=== PATIENT | female | born 1975 | race Caucasian/White ===

== ENCOUNTER 2020-09-11 06:15 | Day surgery (SDC) | payer OTHER ==
[~2020-09-11] VITALS: Ht 172.7 cm; Wt 122.7 kg
[~2020-09-11 06:15] MED LIST: CYMBALTA60 MG PO; ROBAXIN100 MG/1 M PO; VENTOLIN HFA18 GM INH
[2020-09-11] MEDS ORDERED: DICLOFENAC SODI75 MG PO (09:30)
[2020-09-11] MEDS ORDERED: TRAMADOL HCL50 MG PO (09:30)
--- NOTE | 2020-09-11 09:35 | NUR ---
09/11/20 0935 Paris Gonzalez 0928- PT ARRIVES TO PACU NONAROUSABLE TO NOXIOUS STIMULI WITH AN OPA IN PLACE. PT STILL OBSTRUCTING AND NEEDING A JAW THRUST TO MAINTAIN PATENT AIRWAY. RESP EVEN AND UNLABORED. OXYGEN SAT MID TO HIGH 90'S ON 6L VIA MASK.
--- NOTE | 2020-09-11 10:28 | NUR ---
1005: PT RETURNS TO UNIT FROM PACU VIA STRETCHER. AWAKE AND ALERT, CONVERSES WITH THIS RN APPROPRIATLEY. VSS, RESP EVEN AND UNLABORED. COMFORTABLE WITH NO NAUSEA. DRESSING C/D/I, CMS WNL. ICE APPLIED TO OPERATIVE LIMB. ICE WATER AND CRACKERS PROVIDED. NO NEEDS VOICED AT THIS TIME, CALL LIGHT WITHIN REACH
--- NOTE | 2020-09-11 11:07 | NUR ---
1100: PT WITH REQUEST TO USE BR. AMBULATES WITH STANDBY ASSIST FROM DIONE SEWELL. FRANDY WELL, DENIES DIZZINESS AND SOB. SUCCESSFUL UNMEASURABLE VOID. BACK TO ROOM AND DRESSES SELF INDEPENDENTLY 1105: VSS, RESP EVEN AND UNLABORED. PT COMFORTABLE WITHOUT NAUSEA AT THIS TIME. FRANDY PO INTAKE. DRESSING C/D/I, CMS WNL. ATTENTIVE AT THE BEDSIDE
--- NOTE | 2020-09-11 11:31 | NUR ---
1115: SL D/C'D WITH CATH TIP INTACT AND PRESSURE APPLIED TO SITE. WNL. D/C INSTRUCTIONS PROVIDED AND DISCUSSED PER HOSPITAL POLICY. PT VOICES UNDERSTANDING AND DENIES QUESTIONS AND CONCERNS AT THIS TIME. WHEELED OFF OF UNIT IN W/C BY THIS RN. TRANSFERS INTO VEHICLE INDEPENDENTLY. FRANDY WELL. NO S/S OF DISTRESS AT THIS TIME
--- NOTE | 2020-09-14 07:01 | OR ---
[facility] [address] [place] [address] Signed DATE OF OPERATION: 09/11/2020 SURGEON: Matteo Vargas MD PREOPERATIVE DIAGNOSIS: Medial meniscus tear, left knee. POSTOPERATIVE DIAGNOSIS: Medial meniscus tear, left knee. PROCEDURE PERFORMED: Left knee arthroscopy with partial medial meniscectomy. BIN OPERATOR: None. ANESTHESIA: General. BLOOD LOSS: Minimal. TOURNIQUET TIME: Zero. BRIEF HISTORY: Haley is a 45-year-old female with a painful knee that was giving out. Risks and benefits of operative treatment were discussed with her and she elected to proceed. DESCRIPTION OF PROCEDURE: Once consent was obtained, she was taken to the operating room, after adequate anesthesia, she was placed on operating room table, all downside pressure points were well padded. The right leg was flexed, abducted, and externally rotated on a well-padded leg sultana, the left was placed in well-padded leg sultana with no tourniquet. The portal sites were then injected with 0.25% Marcaine with epinephrine under an alcohol prep. The leg was then prepped and draped in the standard sterile fashion. The standard inferolateral and superolateral portals were established and the scope was introduced in the knee. ARTHROSCOPIC FINDINGS: Electronically Signed By: MATTEO VARGAS MD 09/14/20 0701 PATIENT NAME: HALEY MANN OPERATIVE REPORT DATE OF : 71 REPORT #: [id number] PHYSICIAN: MATTEO VARGAS MD PCP: DAMIAN AVILA PA-C REPORT IS CONFIDENTIAL AND NOT TO BE RELEASED WITHOUT AUTHORIZATION [facility] [address] [place] [address] Signed Moderate synovitis was noted throughout the knee. The patella was noted to be in good position and tracked well. Medial and lateral gutters were clear. There were significant osteophytes in a medial gutter. The ACL and PCL were intact. The lateral compartment was intact. 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 There was a radial tear of the posterior horn. Her knee was extremely tight. It was very difficult to reach the posterior aspect of her knee. I had difficulty introducing the instruments through the medial compartment. We were able to move the scope to the medial side, introduced the instruments primarily from the lateral side through the notch and debrided the tear back with curved and straight biters. This was then smoothed using shaver and all debris was evacuated. The chondral flaps on the femoral condyle were debrided as well. Once this was accomplished, the scope was withdrawn and portals were closed with 3-0 nylon. The knee was injected with 60 mg Toradol at the end of the case. She tolerated the procedure well. All sponge, needle, and instrument counts were correct. Matteo Vargas MD BA/ENIOL /[id number] Copies: ~ Electronically Signed By: MATTEO VARGAS MD 09/14/20 07 PATIENT NAME: HALEY AMNN OPERATIVE REPORT DATE OF : 71 REPORT #: [id number] PHYSICIAN: MATTEO VARGAS MD PCP: DAMIAN AVILA PA-C REPORT IS CONFIDENTIAL AND NOT TO BE RELEASED WITHOUT AUTHORIZATION
== END 2020-09-11 11:15 | disposition home or self-care (01) ==
LOC: DS 06:15
PROVIDERS: ATTEND Specialist
PROC: 0SBD4ZZ Excision of Left Knee Joint, Percutaneous Endoscopic Approach (ICD-10-PCS; principal; 2020-09-11 09:00)
DX: S83.242A Other tear of medial meniscus, current injury, left knee, initial encounter (principal); J45.909 Unspecified asthma, uncomplicated; F41.9 Anxiety disorder, unspecified; F32.9 Major depressive disorder, single episode, unspecified; Z88.5 Allergy status to narcotic agent; Z88.2 Allergy status to sulfonamides; Z88.8 Allergy status to other drugs, medicaments and biological substances; Z87.891 Personal history of nicotine dependence; Z91.041 Radiographic dye allergy status; X58.XXXA Exposure to other specified factors, initial encounter
CPT/HCPCS: 01400; J0690; J1100; J1885; J2001; J2250; J2405; J2704; J3010; J7121

== ENCOUNTER 2022-12-28 06:55 | Day surgery (SDC) | payer OTHER ==
[~2022-12-28] VITALS: Ht 172.7 cm; Wt 111.0 kg
[~2022-12-28 06:55] MED LIST changes: +CHLORTHALIDONE50 MG PO; +DICLOFENAC SODI75 MG PO; +K-TAB ER20 MEQ PO; +NALTREX4.5 MG PO; +PRISTIQ ER100 MG PO; +SINGULAIR10 MG PO; +TRAMADOL HCL50 MG PO; +VITAMIN D250 MC1 PO; +VYVANSE30 MG PO
[2022-12-28 07:13] VITALS: BP 141/70
--- NOTE | 2022-12-28 07:50 | NUR ---
PATIENT IN GOOD SPIRITS. CONSENTED TO PRAYER. PRAYED FOR SUCCESSFUL PROCEDURE AND MCCLAIN RECOVERY.
--- NOTE | 2022-12-28 09:18 | NUR ---
12/28/22 0918 Khalida Vargas 0905 PT TO PACU AWAKE AND ALERT DENIES PAIN AND NAUSEA. HAVING CONVERSATIONS WITH STAFF.
[2022-12-28 09:36] VITALS: BP 150/83
--- NOTE | 2022-12-28 11:15 | OR ---
[facility] [address], [place] [address] Signed DATE OF OPERATION: 12/28/2022 SURGEON: Kaela Rai MD PREOPERATIVE DIAGNOSES: 1. Mother with history of adenomatous colonic polyps, age 67. 2. Sister with ulcerative colitis diagnosed in her mid 20s. POSTOPERATIVE DIAGNOSIS: Minimal internal hemorrhoids. PROCEDURE: Colonoscopy with hot biopsy. ESTIMATED BLOOD LOSS: None. INDICATIONS: Mary Kay is a obese female, asked to see me for her initial colonoscopy. I have helped her and her mother with colonoscopies. Consequently, Mary Kay is familiar with this process. We know her mother had tubular adenomatous polyps removed at age 67. Her sister was diagnosed with ulcerative colitis in her mid 20s. She tells me her sister has quite a bit of trouble with the ulcerative colitis. She has been encouraged to see a golf club head inspector and adjuster. Mary Kay tells me she has no lower GI complaints; however, she does not feel her digestion is always the best. In the office, I gave her a pamphlet on colonoscopy. She understands the nature of the test. There is risk including, but not limited to gas bloating, crampy abdominal pain, bleeding, perforation requiring surgery, and missed diagnosis. We also reviewed the written instructions for bowel prep line by line. We also reviewed the need for monitored anesthesia care given her daily need of Vyvanse, naltrexone, and alprazolam, and her very full round face with a heavy chest and abdomen. She had expressed understanding and wished to proceed. DESCRIPTION OF PROCEDURE: Mary Kay was taken into our endoscopy suite and placed in the left lateral decubitus position. She was given monitored anesthesia care with propofol infusion per our nurse aged or disabled carer. A digital rectal exam was performed, this was unremarkable. There were no external hemorrhoids. She has good sphincter tone. There were no masses. The adult colonoscope was introduced and advanced all around into the cecum under direct visualization of camera without difficulty. Her prep was quite excellent. We could easily see the appendiceal orifice and the ileocecal valve. We had taken several Electronically Signed By: KAELA RAI MD 12/28/22 1115 PATIENT NAME: MARY KAY MANN OPERATIVE REPORT DATE OF : 71 REPORT #: [id number] PHYSICIAN: KAELA RAI MD PCP: JACQUELIN AVILA PA-C REPORT IS CONFIDENTIAL AND NOT TO BE RELEASED WITHOUT AUTHORIZATION [facility] [address], [place] [address] Signed pictures throughout for photodocumentation. The scope had been slowly withdrawn. There was no diverticulosis. There were no polyps. Once in the rectum, the scope was retroflexed and she really has minimal internal hemorrhoid columns. After this, the gas was suctioned out, colonoscope removed. Mary Kay tolerated her procedure quite well. RECOMMENDATIONS: Mary Kay can follow up in 5 years for repeat colonoscopy given her mother's history of colonic polyps. Kaela Rai MD ALB/MODL /[id number] cc: MD Jacquelin Rojas PA-C Patient Chart Copies: KAELA RAI MD, CHLOE K PA-C ~ Electronically Signed By: KAELA RAI MD 12/28/22 1115 PATIENT NAME: MARY KAY MANN OPERATIVE REPORT DATE OF : 71 REPORT #: [id number] PHYSICIAN: KAELA RAI MD PCP: JACQUELIN AVILA PA-C REPORT IS CONFIDENTIAL AND NOT TO BE RELEASED WITHOUT AUTHORIZATION
--- NOTE | 2022-12-28 22:22 | EKG ---
[facility] [address] [place] [address] Signed Normal sinus rhythm Normal ECG No previous ECGs available Confirmed by Cresencio Billings MD () on 12/28/2022 10:22:28 PM Electronically Signed By: CRESENCIO BILLINGS MD 12/28/222221 PATIENT NAME: HALEY MANN Electrocardiogram DATE OF : 71 PHYSICIAN: CRESENCIO BILLINGS MD REPORT #: [id number] REPORT IS CONFIDENTIAL AND NOT TO BE RELEASED WITHOUT AUTHORIZATION
== END 2022-12-28 09:35 | disposition home or self-care (01) ==
LOC: DS 06:55 → OPS 06:55 → DS 08:45 → OPS 08:45
PROVIDERS: ATTEND Colon & Rectal Surgery
PROC: 0DJD8ZZ Inspection of Lower Intestinal Tract, Via Natural or Artificial Opening Endoscopic (ICD-10-PCS; principal; 2022-12-28 08:40)
DX: Z12.11 Encounter for screening for malignant neoplasm of colon (principal); K64.8 Other hemorrhoids; Z83.710 Family history of adenomatous and serrated polyps; F43.12 Post-traumatic stress disorder, chronic; F32.A Depression, unspecified; E78.5 Hyperlipidemia, unspecified; E28.2 Polycystic ovarian syndrome; E66.01 Morbid (severe) obesity due to excess calories; Z88.2 Allergy status to sulfonamides; Z68.37 Body mass index [BMI] 37.0-37.9, adult; Z83.79 Family history of other diseases of the digestive system; F90.9 Attention-deficit hyperactivity disorder, unspecified type; J45.909 Unspecified asthma, uncomplicated
CPT/HCPCS: 93005; 93010; J2001; J2704; J3010; J3490; J7121